=== PATIENT | male | born 1965 | race Caucasian/White ===

== ENCOUNTER 2017-08-11 20:39 | Inpatient (IN) | payer MEDICARE, MEDICAID ==
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
[2017-08-11 21:58] LABS: URINE BILIRUBIN NEGATIVE (NEGATIVE); URINE BLOOD LARGE (NEGATIVE); URINE GLUCOSE (UA) NEGATIVE (NEGATIVE); URINE KETONE NEGATIVE (NEGATIVE); URINE PH 6.5 (4.6 - 8.0); URINE PROTEIN >=300 mg/dL (NEGATIVE); URINE UROBILINOGEN 0.2 E.U./dL (0.2 - 1.0)
[2017-08-11 22:03] LABS: URINE COLOR YELLOW
[2017-08-11 22:04] LABS: URINE BACTERIA MODERATE /hpf (NONE SEEN); URINE CALCIUM OXALATE CRYSTALS FEW /hpf; URINE EPITHELIAL CELLS NONE SEEN /lpf (FEW); URINE RBC 50-100 /hpf (0-5)
[2017-08-11 22:09] LABS: % EOSINOPHILS 3.3 % (0.0-5.0); % NEUTROPHILS 62.7 % (40.0-80.0); HEMOGLOBIN 10.7 gm/dL (12-16); MEAN CORPUSCULAR HEMOGLOBIN 21.6 pg (26.0-30.0); MEAN CORPUSCULAR HGB CONC 32.3 pg (28.0-36.0); MEAN PLATELET VOLUME 7.6 fl; NEUTROPHILE ABSOLUTE 8.9 Th/cmm (1.8-8.0); PLATELET COUNT 482 Th/cmm (150-400); RED BLOOD COUNT 4.92 Mil/cmm (4.30-5.70); RED CELL DISTRIBUTION WIDTH 14.7 % (11.5-20.0)
[2017-08-11 22:09] LABS: AMPHETAMINE URINE NEGATIVE (NEGATIVE); BARBITURATES URINE NEGATIVE (NEGATIVE); METHADONE URINE NEGATIVE (NEGATIVE)
[2017-08-11 22:12] LABS: ALB/GLOB RATIO 1.8 (1.0-1.8); ALKALINE PHOSPHATASE 74 U/L (34-104); ANION GAP 8.5 (7.0-16.0); BILIRUBIN,TOTAL 0.4 mg/dL (0.3-1.0); BUN - UREA NITROGEN 19 mg/dL (7-25); BUN/CREATININE RATIO 47.5; CALCIUM SERUM 8.9 mg/dL (8.6-10.3); CARBON DIOXIDE 27.6 mEq/L (21.0-31.0); CHLORIDE 103 mEq/L (98-107); CREATININE - SERUM 0.4 mg/dL (0.7-1.3); GLUCOSE 96 mg/dL (70-105); POTASSIUM SERUM 4.1 mEq/L (3.5-5.1); SGOT 16 U/L (13-39); SGPT/ALT 15 U/L (7-52); SODIUM SERUM 135 mEq/L (136-145)
[2017-08-11 22:14] LABS: WHITE BLOOD COUNT 14.2 Th/cmm (4.8-10.8)
[2017-08-11] MEDS ORDERED: cefTRIAXone 1 GM in Sodium Chloride 0.9% 50 ML IV ONE (22:15)
[2017-08-11] MEDS ORDERED: Sodium Chloride 0.9% 1,000 ML IV ONE (22:51)
[2017-08-11 22:55] LABS: MEAN CELL VOLUME 67.1 fl (80-99)
[2017-08-11] MEDS ORDERED: Fleet Enema 135 mL RC PRN (23:39)
[2017-08-11] MEDS ORDERED: Maalox 30 mL Cup PO PRN (23:42)
[2017-08-12] MEDS: D5-0.9%NS 1,000 ML IV SCH (01:10)
[2017-08-12] MEDS: HYDROmorphone 1 mg/mL 1mL Syr IVP PRN ×5 (05:36→20:13)
[2017-08-12 06:48] VITALS: BP 106/61
[2017-08-12] MEDS: Ipratropium Neb 0.5 mg/2.5 mL UD IH SCH ×4 (07:44→19:55)
[2017-08-12] MEDS: Albuterol Nebulizer 2.5mg/3mL HHN SCH ×4 (07:44→19:55)
--- NOTE | 2017-08-12 08:21 | Diagnostic Imaging Report ---
CHEST X-RAY: AP view INDICATION: Cough COMPARISON: None FINDINGS: Chronic changes are seen with no focal consolidation or effusions. Bibasal pleural thickening is noted. Heart size is normal. Atherosclerosis of the aortic arch is noted. Degenerative changes of the spine are noted with spinal scoliosis and evidence of previous thoracic spinal fixation. IMPRESSION: Chronic lung changes with no focal consolidation identified. No evidence of pneumothorax. Spinal scoliosis and postsurgical changes. Atherosclerotic vascular disease.
[2017-08-12] MEDS ORDERED: Non-Formulary Item 1 EA (Cranberry Fruit Concentrate [Cranberry] 450 MG) PO SCH (09:00)
[2017-08-12] MEDS: POLYETHYLENE GLYCOL 3350 17 GM PACK PO SCH (09:38)
[2017-08-12] MEDS: APAP/Oxycodone 5/325mg Oral Tab PO PRN ×4 (09:38→21:01)
[2017-08-12] MEDS: Lactulose 10 Gm/15 mL 30mL UDC PO SCH ×3 (09:38→21:01)
[2017-08-12] MEDS: Nicotine 21 mg/24 hr Tdm TD SCH (09:43)
[2017-08-12] MEDS ORDERED: Probiotic Screen MC PRN (13:31)
--- NOTE | 2017-08-12 16:04 | Internal Medicine Prog Note ---
Internal Medicine Subjective - Subjective Service Date: 08/12/17 ([id number] [facility] dictated) Internal Medicine Objective - Results Result Diagrams: 08/11/17 21:44 08/11/17 21:44 Recent Labs: Laboratory Last Values WBC 14.2 Th/cmm (4.8-10.8) H 08/11/17 21:44 RBC 4.92 Mil/cmm (4.30-5.70) 08/11/17 21:44 Hgb 10.7 gm/dL (12-16) L 08/11/17 21:44 Hct 33.0 % (41.0-60) L 08/11/17 21:44 MCV 67.1 fl (80-99) L 08/11/17 21:44 MCH 21.6 pg (26.0-30.0) L 08/11/17 21:44 MCHC Differential 32.3 pg (28.0-36.0) 08/11/17 21:44 RDW 14.7 % (11.5-20.0) 08/11/17 21:44 Plt Count 482 Th/cmm (150-400) H 08/11/17 21:44 MPV 7.6 fl 08/11/17 21:44 Neutrophils % 62.7 % (40.0-80.0) 08/11/17 21:44 Lymphocytes % 29.0 % (20.0-50.0) 08/11/17 21:44 Monocytes % 5.0 % (2.0-10.0) 08/11/17 21:44 Eosinophils % 3.3 % (0.0-5.0) 08/11/17 21:44 Basophils % 0.0 % (0.0-2.0) 08/11/17 21:44 Sodium 135 mEq/L (136-145) L 08/11/17 21:44 Potassium 4.1 mEq/L (3.5-5.1) 08/11/17 21:44 Chloride 103 mEq/L (98-107) 08/11/17 21:44 Carbon Dioxide 27.6 mEq/L (21.0-31.0) 08/11/17 21:44 Anion Gap 8.5 (7.0-16.0) 08/11/17 21:44 BUN 19 mg/dL (7-25) 08/11/17 21:44 Creatinine 0.4 mg/dL (0.7-1.3) L 08/11/17 21:44 Est GFR ( Amer) > 60.0 ml/min (>90) 08/11/17 21:44 Est GFR (Non-Af Amer) > 60.0 ml/min 08/11/17 21:44 BUN/Creatinine Ratio 47.5 08/11/17 21:44 Glucose 96 mg/dL (70-105) 08/11/17 21:44 Whole Bld Lactic Acid 1.12 mmol/L (0.60-1.99) 08/11/17 21:44 Calcium 8.9 mg/dL (8.6-10.3) 08/11/17 21:44 Total Bilirubin 0.4 mg/dL (0.3-1.0) 08/11/17 21:44 AST 16 U/L (13-39) 08/11/17 21:44 ALT 15 U/L (7-52) 08/11/17 21:44 Alkaline Phosphatase 74 U/L (34-104) 08/11/17 21:44 Total Protein 5.8 gm/dL (6.0-8.3) L 08/11/17 21:44 Albumin 3.7 gm/dL (4.2-5.5) L 08/11/17 21:44 Globulin 2.1 gm/dL 08/11/17 21:44 Albumin/Globulin Ratio 1.8 (1.0-1.8) 08/11/17 21:44 Urine Source RANDOM 08/11/17 21:35 Urine Color YELLOW 08/11/17 21:35 Urine Clarity CLOUDY (CLEAR) 08/11/17 21:35 Urine pH 6.5 (4.6 - 8.0) 08/11/17 21:35 Ur Specific [place] 1.020 (1.005-1.030) 08/11/17 21:35 Urine Protein >=300 mg/dL (NEGATIVE) 08/11/17 21:35 Urine Glucose (UA) NEGATIVE mg/dL (NEGATIVE) 08/11/17 21:35 Urine Ketones NEGATIVE mg/dL (NEGATIVE) 08/11/17 21:35 Urine Blood LARGE (NEGATIVE) H 08/11/17 21:35 Urine Nitrate POSITIVE (NEGATIVE) H 08/11/17 21:35 Urine Bilirubin NEGATIVE (NEGATIVE) 08/11/17 21:35 Urine Urobilinogen 0.2 E.U./dL (0.2 - 1.0) 08/11/17 21:35 Ur Leukocyte Esterase SMALL (NEGATIVE) H 08/11/17 21:35 Urine RBC 50-100 /hpf (0-5) H 08/11/17 21:35 Urine WBC 6-10 /hpf (0-5) H 08/11/17 21:35 Ur Epithelial Cells NONE SEEN /lpf (FEW) 08/11/17 21:35 Calcium Oxalate Crystal FEW /hpf 08/11/17 21:35 Urine Bacteria MODERATE /hpf (NONE SEEN) 08/11/17 21:35 Urine Opiates Screen NEGATIVE (NEGATIVE) 08/11/17 21:35 Urine Methadone Screen NEGATIVE (NEGATIVE) 08/11/17 21:35 Ur Barbiturates Screen NEGATIVE (NEGATIVE) 08/11/17 21:35 Ur Tricyclics Screen NEGATIVE (NEGATIVE) 08/11/17 21:35 Ur Phencyclidine Scrn NEGATIVE (NEGATIVE) 08/11/17 21:35 Amphetamines Screen NEGATIVE (NEGATIVE) 08/11/17 21:35 U Methamphetamines Scrn NEGATIVE (NEGATIVE) 08/11/17 21:35 U Benzodiazepines Scrn POSITIVE (NEGATIVE) H 08/11/17 21:35 U Cocaine Metab Screen NEGATIVE (NEGATIVE) 08/11/17 21:35 U Cannabinoids Screen POSITIVE (NEGATIVE) H 08/11/17 21:35 - Physical Exam Vitals and I&O: Vital Signs Temp 98.2 F 08/12/17 11:00 Pulse 88 08/12/17 11:00 Resp 20 08/12/17 11:06 BP 134/74 08/12/17 11:00 Pulse Ox 100 08/12/17 11:00 Active Medications: Current Medications Acetaminophen (Tylenol) 650 mg PO Q4H PRN PRN Reason: Mild Pain Or Fever above 101 Stop: 10/10/17 23:41 Al Hydrox/Mg Hydrox/Simethicone (Maalox) 30 ml PO Q6H PRN PRN Reason: Dyspepsia Stop: 10/10/17 23:41 Albuterol Sulfate (Albuterol 2.5mg/3ml Neb Ud) 2.5 mg HHN QIDRT THAD Stop: 10/11/17 06:59 Last Admin: 08/12/17 12:15 Dose: Not Given Bisacodyl (Dulcolax 10 Mg Supp) 10 mg RC Q6HR PRN PRN Reason: Constipation Stop: 10/10/17 23:38 Hydromorphone HCl (Dilaudid) 1 mg IVP Q4HR PRN PRN Reason: BACK PAIN Stop: 10/11/17 03:44 Cefepime HCl 1 gm/ Dextrose 50 mls @ 100 mls/hr IV Q12HR [facility]AD Stop: 10/11/17 08:59 Last Admin: 08/12/17 09:38 Dose: 100 mls/hr Dextrose/Sodium Chloride (D5-0.9%Ns) 1,000 mls @ 80 mls/hr IV .[id number] [facility] Stop: 10/10/17 23:44 Last Admin: 08/12/17 01:10 Dose: 80 mls/hr Ipratropium [place] (Atrovent Neb 0.5mg/2.5ml) 0.5 mg IH QIDRT [facility] Stop: 10/11/17 06:59 Last Admin: 08/12/17 12:15 Dose: Not Given Ketorolac Tromethamine (Toradol) 30 mg IM Q6HR PRN PRN Reason: Pain (MODERATE) Stop: 08/17/17 23:43 Lactobacillus Rhamnosus (Culturelle) 1 each PO DAILY [facility] Stop: 10/12/17 08:59 Lactulose (Cephulac) 20 gm PO TID [facility] Stop: 10/11/17 08:59 Last Admin: 08/12/17 13:49 Dose: 20 gm Lorazepam (Ativan) 0.5 mg PO Q6HR PRN; Protocol PRN Reason: Anxiety Stop: 10/10/17 23:38 Last Admin: 08/12/17 01:15 Dose: 0.5 mg Miscellaneous (Probiotic Screen) 1 ea MC PRN PRN PRN Reason: PROTOCOL Stop: 10/11/17 13:30 Naproxen (Naprosyn) 500 mg PO Q12HR PRN PRN Reason: PAIN Stop: 10/10/17 23:38 Last Admin: 08/12/17 01:29 Dose: 500 mg Nicotine (Nicotine Transdermal System) 21 mg TD Q24HR [facility]AD Stop: 10/11/17 08:59 Last Admin: 08/12/17 09:43 Dose: Not Given Ondansetron HCl (Zofran) 4 mg IV Q8H PRN PRN Reason: Nausea / Vomiting Stop: 10/10/17 23:41 Oxycodone/Acetaminophen (Percocet 5/325mg Oral Tab) 1 tab PO Q4HR PRN PRN Reason: SEVERE PAIN Last Admin: 08/12/17 13:05 Dose: 1 tab Polyethylene Glycol (Miralax) 17 gm PO DAILY [facility]AD Stop: 10/11/17 08:59 Last Admin: 08/12/17 09:38 Dose: 17 gm Sodium Phosphate (Fleet Enema) 133 ml RC DAILY PRN PRN Reason: NO BOWEL MOVEMENT IN 24 HRS Stop: 10/10/17 23:38 Zolpidem Tartrate (Ambien) 10 mg PO HS PRN PRN Reason: Insomnia Stop: 10/10/17 23:41 Internal Medicine Assmt/Plan - Assessment Assessment: acute uti severe back pain paraplegia leukocytosis
--- NOTE | 2017-08-12 17:52 | History & Physical ---
ADMIT DATE: 08/12/2017 CHIEF COMPLAINT: Upper back pain and bilateral leg spasm. HISTORY OF PRESENT ILLNESS: This is a 52-year-old male who is a jail resident who is brought here to [facility] for 1 day history of back pain that has worsened. According to the patient, he has been seeing pain specialist at [facility] and the patient has been taking OxyContin ____ mg 3 times a day. The patient was recently discharged from [facility] for gastritis and abdominal pain. PAST MEDICAL HISTORY: Back injury and paraplegia. SOCIAL HISTORY: The patient is a jail resident. The patient is a marijuana user. PAST SURGICAL HISTORY: Spine surgery, augmentation, and cystoplasty. FAMILY HISTORY: Noncontributory. REVIEW OF SYSTEMS: GENERAL: Denies any fevers, any chills. CARDIOVASCULAR: Denies chest pain. RESPIRATORY: Denies shortness of breath. GASTROINTESTINAL: Denies nausea, vomiting, or abdominal pain. GENITOURINARY: Denies dysuria. MUSCULOSKELETAL: The patient complains of back pain. PHYSICAL EXAMINATION: GENERAL: The patient is well developed, well nourished, in no acute distress. VITAL SIGNS: Temperature ____, heart rate 88, blood pressure 134/74, respirations 20, O2 100%. HEENT: Head; normocephalic, atraumatic. NECK: Supple. No mass. LUNGS: Clear bilaterally. HEART: Regular rate and rhythm. ABDOMEN: Soft and nontender. LABORATORY DATA: The patient had a chest x-ray done and the impression is chronic lung changes with no focal consolidation identified. No evidence of pneumothorax, ____ scoliosis, postsurgical changes, atherosclerotic vascular disease. LABORATORY RESULTS: WBC 14.2, H and H 10.7 and 33.0, platelet 482. Sodium 135, potassium 4.1, BUN 19, creatinine 0.4. The patient had a urinalysis done, positive for UTI. ASSESSMENT: 1. Acute urinary tract infection. 2. Severe back pain. 3. Leukocytosis. 4. Paraplegia. PLAN: The patient will be admitted to the telemetry unit. Pain management will be done. We will get Physical Therapy eval. Keep the patient on empiric IV antibiotics for UTI and IV fluids for hydration. We will continue to follow this patient. JOB# [id number]
[2017-08-13] MEDS: HYDROmorphone 1 mg/mL 1mL Syr IVP PRN ×4 (00:21→12:01)
[2017-08-13] MEDS: APAP/Oxycodone 5/325mg Oral Tab PO PRN ×3 (01:03→09:06)
[2017-08-13 06:17] LABS: HEMOGLOBIN 11.5 gm/dL (12-16); MEAN PLATELET VOLUME 7.3 fl
[2017-08-13 06:24] LABS: ANION GAP 10.5 (7.0-16.0); BUN - UREA NITROGEN 19 mg/dL (7-25); BUN/CREATININE RATIO 47.5; CALCIUM SERUM 8.7 mg/dL (8.6-10.3); CARBON DIOXIDE 25.6 mEq/L (21.0-31.0); CHLORIDE 105 mEq/L (98-107); CREATININE - SERUM 0.4 mg/dL (0.7-1.3); GLUCOSE 87 mg/dL (70-105); POTASSIUM SERUM 4.1 mEq/L (3.5-5.1); SODIUM SERUM 137 mEq/L (136-145)
[2017-08-13 06:25] LABS: HEMATOCRIT 34.4 % (41.0-60); MEAN CORPUSCULAR HEMOGLOBIN 22.2 pg (26.0-30.0); MEAN CORPUSCULAR HGB CONC 33.3 pg (28.0-36.0); PLATELET COUNT 486 Th/cmm (150-400); RED BLOOD COUNT 5.16 Mil/cmm (4.30-5.70); RED CELL DISTRIBUTION WIDTH 14.4 % (11.5-20.0)
[2017-08-13 06:34] LABS: WHITE BLOOD COUNT 12.5 Th/cmm (4.8-10.8)
[2017-08-13 06:44] LABS: EOSINOPHIL 3 % (0-5); HYPOCHROMIA 1+; MICROCYTOSIS 2+; NEUTROPHILS 70 % (40-80); TOTAL CELLS COUNTED 100
[2017-08-13 06:50] LABS: MEAN CELL VOLUME 66.7 fl (80-99)
[2017-08-13] MEDS: Albuterol Nebulizer 2.5mg/3mL HHN SCH ×2 (07:00→11:48)
[2017-08-13] MEDS: Ipratropium Neb 0.5 mg/2.5 mL UD IH SCH ×2 (07:00→11:48)
[2017-08-13] MEDS ORDERED: Lactobacillus Rhamnosus 10 Billion CFU Capsule PO SCH (09:00)
[2017-08-13] MEDS: POLYETHYLENE GLYCOL 3350 17 GM PACK PO SCH (09:07)
[2017-08-13] MEDS: Lactulose 10 Gm/15 mL 30mL UDC PO SCH (09:07)
[2017-08-13] MEDS: Nicotine 21 mg/24 hr Tdm TD SCH (09:08)
--- NOTE | 2017-08-13 10:26 | Consultation ---
DATE OF CONSULTATION: 08/13/2017 AGE: 52. SEX: Male. PHYSICIAN: Dr. Sutherland. APPLICATION SERVICES MANAGER: Dr. Machado. REASON FOR THE CONSULT: Anxiety and depression. HISTORY OF PRESENT ILLNESS: The patient was admitted to the hospital from [facility]. The patient has been anxious and has been restless lately. The patient was in [facility] not long ago because of abdominal pain and he was admitted to [facility] because of back pain that has been going on for 1 weeks. Apparently, the patient has been also taking opioids medications to help him with the pain and the question is that the patient might have been abusing the opioid. The patient said that he has been in pain, which make him very anxious and also make him very depressed. PAST PSYCHIATRIC HISTORY: The patient denies any history of psychiatric treatment, but he has been in treatment for his multiple medical issues. PAST MEDICAL HISTORY: The patient has paraplegia. He was admitted to the hospital with chronic back pain. SOCIAL HISTORY: The patient lives in [facility]. The patient said that he used to drink alcohol and use drugs, but he denies any recent drug use. The patient said that he has one son. He denies being . MENTAL STATUS EXAM: The patient appears his stated age, anxious, in a depressed mood, cooperative. The patient denies any auditory or visual hallucinations or delusions. He denies any suicidal or homicidal ideations. The patient is alert and oriented to time, place, person, and situation. Intact immediate, recent and remote memories. Fair insight and fair judgment. He seems to be of average intelligence based on his verbal ability. ASSESSMENT: PRIMARY DIAGNOSIS: Mood disorder, unspecified. SECONDARY DIAGNOSIS: Generalized anxiety disorder. Rule out opiate use disorder. TREATMENT PLAN: We will monitor the patient's behavior and condition closely. We will start the patient on Cymbalta and we will adjust the dose. Thanks to Dr. Umanzor and will follow up with you. [facility]# [id number]
[2017-08-13] MEDS: D5-0.9%NS 1,000 ML IV SCH (11:18)
--- NOTE | 2017-08-13 11:59 | Internal Medicine Prog Note ---
Internal Medicine Subjective - Subjective Service Date: 08/13/17 ([id number] dc summary dictated) Internal Medicine Objective - Results Result Diagrams: 08/13/17 05:55 08/13/17 05:55 Recent Labs: Laboratory Last Values WBC 12.5 Th/cmm (4.8-10.8) H 08/13/17 05:55 RBC 5.16 Mil/cmm (4.30-5.70) 08/13/17 05:55 Hgb 11.5 gm/dL (12-16) L 08/13/17 05:55 Hct 34.4 % (41.0-60) L 08/13/17 05:55 MCV 66.7 fl (80-99) L 08/13/17 05:55 MCH 22.2 pg (26.0-30.0) L 08/13/17 05:55 MCHC Differential 33.3 pg (28.0-36.0) 08/13/17 05:55 RDW 14.4 % (11.5-20.0) 08/13/17 05:55 Plt Count 486 Th/cmm (150-400) H 08/13/17 05:55 MPV 7.3 fl 08/13/17 05:55 Neutrophils % 62.7 % (40.0-80.0) 08/11/17 21:44 Lymphocytes % 29.0 % (20.0-50.0) 08/11/17 21:44 Monocytes % 5.0 % (2.0-10.0) 08/11/17 21:44 Eosinophils % 3.3 % (0.0-5.0) 08/11/17 21:44 Basophils % 0.0 % (0.0-2.0) 08/11/17 21:44 Neutrophils (Manual) 70 % (40-80) 08/13/17 05:55 Lymphocytes 22 % (20-50) 08/13/17 05:55 Monocytes 5 % (2-10) 08/13/17 05:55 Eosinophils 3 % (0-5) 08/13/17 05:55 Hypochromia 1+ 08/13/17 05:55 Microcytosis 2+ 08/13/17 05:55 Sodium 137 mEq/L (136-145) 08/13/17 05:55 Potassium 4.1 mEq/L (3.5-5.1) 08/13/17 05:55 Chloride 105 mEq/L (98-107) 08/13/17 05:55 Carbon Dioxide 25.6 mEq/L (21.0-31.0) 08/13/17 05:55 Anion Gap 10.5 (7.0-16.0) 08/13/17 05:55 BUN 19 mg/dL (7-25) 08/13/17 05:55 Creatinine 0.4 mg/dL (0.7-1.3) L 08/13/17 05:55 Est GFR ( Amer) > 60.0 ml/min (>90) 08/13/17 05:55 Est GFR (Non-Af Amer) > 60.0 ml/min 08/13/17 05:55 BUN/Creatinine Ratio 47.5 08/13/17 05:55 Glucose 87 mg/dL (70-105) 08/13/17 05:55 Whole Bld Lactic Acid 1.12 mmol/L (0.60-1.99) 08/11/17 21:44 Calcium 8.7 mg/dL (8.6-10.3) 08/13/17 05:55 Total Bilirubin 0.4 mg/dL (0.3-1.0) 08/11/17 21:44 AST 16 U/L (13-39) 08/11/17 21:44 ALT 15 U/L (7-52) 08/11/17 21:44 Alkaline Phosphatase 74 U/L (34-104) 08/11/17 21:44 Total Protein 5.8 gm/dL (6.0-8.3) L 08/11/17 21:44 Albumin 3.7 gm/dL (4.2-5.5) L 08/11/17 21:44 Globulin 2.1 gm/dL 08/11/17 21:44 Albumin/Globulin Ratio 1.8 (1.0-1.8) 08/11/17 21:44 Urine Source RANDOM 08/11/17 21:35 Urine Color YELLOW 08/11/17 21:35 Urine Clarity CLOUDY (CLEAR) 08/11/17 21:35 Urine pH 6.5 (4.6 - 8.0) 08/11/17 21:35 Ur Specific [place] 1.020 (1.005-1.030) 08/11/17 21:35 Urine Protein >=300 mg/dL (NEGATIVE) 08/11/17 21:35 Urine Glucose (UA) NEGATIVE mg/dL (NEGATIVE) 08/11/17 21:35 Urine Ketones NEGATIVE mg/dL (NEGATIVE) 08/11/17 21:35 Urine Blood LARGE (NEGATIVE) H 08/11/17 21:35 Urine Nitrate POSITIVE (NEGATIVE) H 08/11/17 21:35 Urine Bilirubin NEGATIVE (NEGATIVE) 08/11/17 21:35 Urine Urobilinogen 0.2 E.U./dL (0.2 - 1.0) 08/11/17 21:35 Ur Leukocyte Esterase SMALL (NEGATIVE) H 08/11/17 21:35 Urine RBC 50-100 /hpf (0-5) H 08/11/17 21:35 Urine WBC 6-10 /hpf (0-5) H 08/11/17 21:35 Ur Epithelial Cells NONE SEEN /lpf (FEW) 08/11/17 21:35 Calcium Oxalate Crystal FEW /hpf 08/11/17 21:35 Urine Bacteria MODERATE /hpf (NONE SEEN) 08/11/17 21:35 Urine Opiates Screen NEGATIVE (NEGATIVE) 08/11/17 21:35 Urine Methadone Screen NEGATIVE (NEGATIVE) 08/11/17 21:35 Ur Barbiturates Screen NEGATIVE (NEGATIVE) 08/11/17 21:35 Ur Tricyclics Screen NEGATIVE (NEGATIVE) 08/11/17 21:35 Ur Phencyclidine Scrn NEGATIVE (NEGATIVE) 08/11/17 21:35 Amphetamines Screen NEGATIVE (NEGATIVE) 08/11/17 21:35 U Methamphetamines Scrn NEGATIVE (NEGATIVE) 08/11/17 21:35 U Benzodiazepines Scrn POSITIVE (NEGATIVE) H 08/11/17 21:35 U Cocaine Metab Screen NEGATIVE (NEGATIVE) 08/11/17 21:35 U Cannabinoids Screen POSITIVE (NEGATIVE) H 08/11/17 21:35 - Physical Exam Vitals and I&O: Vital Signs Temp 97.2 F 08/13/17 07:47 Pulse 95 08/13/17 11:48 Resp 18 08/13/17 11:48 BP 136/67 08/13/17 07:47 Pulse Ox 97 08/13/17 11:48 Intake & Output 08/12/17 08/13/17 08/13/17 18:59 06:59 18:59 Intake Total 1050 50 Balance 1050 50 Intake: Intake, IV Amount 1050 50 Cefepime 1 gm In Dextrose 50 50 5% 50 ml @ 100 mls/hr IV Q12HR [facility] Rx#:[id number] D5-0.9%Ns 1,000 ml @ 80 1000 mls/hr IV .[id number] [facility] Rx #:[id number] Other: Stool Characteristics Soft Soft Formed Formed Active Medications: Current Medications Acetaminophen (Tylenol) 650 mg PO Q4H PRN PRN Reason: Mild Pain Or Fever above 101 Stop: 10/10/17 23:41 Al Hydrox/Mg Hydrox/Simethicone (Maalox) 30 ml PO Q6H PRN PRN Reason: Dyspepsia Stop: 10/10/17 23:41 Albuterol Sulfate (Albuterol 2.5mg/3ml Neb Ud) 2.5 mg HHN QIDRT [facility] Stop: 10/11/17 06:59 Last Admin: 08/13/17 11:48 Dose: 2.5 mg Bisacodyl (Dulcolax 10 Mg Supp) 10 mg RC Q6HR PRN PRN Reason: Constipation Stop: 10/10/17 23:38 Duloxetine HCl (Cymbalta) 30 mg PO DAILY [facility] PRN Reason: Protocol Stop: 10/12/17 08:59 Last Admin: 08/13/17 09:07 Dose: Not Given Hydromorphone HCl (Dilaudid) 1 mg IVP Q4HR PRN PRN Reason: BACK PAIN Stop: 10/11/17 03:44 Last Admin: 08/13/17 08:11 Dose: 1 mg Cefepime HCl 1 gm/ Dextrose 50 mls @ 100 mls/hr IV Q12HR [facility] Stop: 10/11/17 08:59 Last Admin: 08/13/17 09:06 Dose: 100 mls/hr Dextrose/Sodium Chloride (D5-0.9%Ns) 1,000 mls @ 80 mls/hr IV .[id number] [facility] Stop: 10/10/17 23:44 Last Admin: 08/13/17 11:18 Dose: 80 mls/hr Ipratropium [place] (Atrovent Neb 0.5mg/2.5ml) 0.5 mg IH QIDRT [facility] Stop: 10/11/17 06:59 Last Admin: 08/13/17 11:48 Dose: 0.5 mg Ketorolac Tromethamine (Toradol) 30 mg IM Q6HR PRN PRN Reason: Pain (MODERATE) Stop: 08/17/17 23:43 Last Admin: 08/13/17 00:29 Dose: 30 mg Lactobacillus Rhamnosus (Culturelle) 1 each PO DAILY [facility] Stop: 10/12/17 08:59 Last Admin: 08/13/17 09:06 Dose: 1 each Lactulose (Cephulac) 20 gm PO TID [facility] Stop: 10/11/17 08:59 Last Admin: 08/13/17 09:07 Dose: Not Given Lorazepam (Ativan) 0.5 mg PO Q6HR PRN; Protocol PRN Reason: Anxiety Stop: 10/10/17 23:38 Last Admin: 08/12/17 01:15 Dose: 0.5 mg Miscellaneous (Probiotic Screen) 1 ea MC PRN PRN PRN Reason: PROTOCOL Stop: 10/11/17 13:30 Naproxen (Naprosyn) 500 mg PO Q12HR PRN PRN Reason: PAIN Stop: 10/10/17 23:38 Last Admin: 08/12/17 01:29 Dose: 500 mg Nicotine (Nicotine Transdermal System) 21 mg TD Q24HR [facility] Stop: 10/11/17 08:59 Last Admin: 08/13/17 09:08 Dose: Not Given Ondansetron HCl (Zofran) 4 mg IV Q8H PRN PRN Reason: Nausea / Vomiting Stop: 10/10/17 23:41 Oxycodone HCl (Oxycontin) 60 mg PO X1 [facility] Stop: 10/12/17 11:59 Oxycodone/Acetaminophen (Percocet 5/325mg Oral Tab) 1 tab PO Q4HR PRN PRN Reason: SEVERE PAIN Last Admin: 08/13/17 09:06 Dose: 1 tab Polyethylene Glycol (Miralax) 17 gm PO DAILY [facility] Stop: 10/11/17 08:59 Last Admin: 08/13/17 09:07 Dose: Not Given Sodium Phosphate (Fleet Enema) 133 ml RC DAILY PRN PRN Reason: NO BOWEL MOVEMENT IN 24 HRS Stop: 10/10/17 23:38 Zolpidem Tartrate (Ambien) 10 mg PO HS PRN PRN Reason: Insomnia Stop: 10/10/17 23:41 Last Admin: 08/13/17 00:22 Dose: 10 mg Internal Medicine Assmt/Plan - Assessment Assessment: acute uti severe back pain paraplegia leukocytosis
--- NOTE | 2017-08-13 16:32 | Discharge Summary ---
DATE OF DISCHARGE: 08/13/2017 DISCHARGE DIAGNOSES: Acute urinary tract infection, severe back pain, leukocytosis, and paraplegia. HISTORY OF PRESENT ILLNESS: A 52-year-old male is a [facility] resident who was brought here to [facility] for 1-day history of back pain that is worsened. According to the patient, he has been seeing a specialist for pain management. The patient has been taking OxyContin. PHYSICAL EXAMINATION: GENERAL: The patient is well developed, well nourished, in no acute distress. VITAL SIGNS: Stable. HEENT: Head is normocephalic and atraumatic. NECK: Supple. No mass. LUNGS: Clear bilaterally. HEART: Regular rhythm. ABDOMEN: Soft and nontender. During the hospital stay, the patient was admitted to the med/surg unit. The patient was kept on empiric IV antibiotics for UTI as well as IV fluids for hydration. Pain Management was also being initiated. The patient had a Psychiatry consult done. The patient did not have any fevers during the hospital stay. For this reason, the patient is stable for discharge. CONDITION UPON DISCHARGE: Fair. DISPOSITION: [facility]. JOB# [id number]
== END 2017-08-13 14:00 | disposition home or self-care (01) | DRG 690 ==
LOC: ER 20:39 → ICU 23:24 → TELE 08-12 10:20 → MSI 08-12 12:02
PROVIDERS: ADMIT Internal Medicine; ATTEND Internal Medicine
DX: N39.0 Urinary tract infection, site not specified (principal); G82.20 Paraplegia, unspecified; M54.9 Dorsalgia, unspecified; R32 Unspecified urinary incontinence; F41.1 Generalized anxiety disorder; F32.9 Major depressive disorder, single episode, unspecified; F17.210 Nicotine dependence, cigarettes, uncomplicated; G89.4 Chronic pain syndrome; M62.838 Other muscle spasm; G62.9 Polyneuropathy, unspecified; Z98.1 Arthrodesis status
CPT/HCPCS: 36415-UA; 71010-TC; 80048-TC; 80053-TC; 80307; 81001-TC; 83605; 85007-TC; 85025-TC; 85027-TC; 87086-90; 90779; 94640; 94760; 96375; J0692; J0696; J1170; J1885; J7030; J7042; J7613; Z7502